=== PATIENT | male | born 1940 | race Caucasian/White ===

== ENCOUNTER → 2018-05-28 | Outpatient (CLI) | payer BC ==
[2018-01-05 09:18] VITALS: BP 110/70
[~2018-05-28] MED LIST: ASPI-630 PO; ATEN5POW MC; CHOL10002 PO; CYCL10TA2 PO; FLUT50DI IH; ISOS30TA19 PO; LOSA-73 PO; MULT-234 PO; NIAC750T4 PO; PRAV10TA2 PO; RANI150C PO; RIVA15TA PO; TAMS0.4C2 PO
--- NOTE | 2018-05-28 13:52 | KCIC ---
EXAM: Left hip and pelvis, 3 views. HISTORY: Pain. COMPARISON: None. FINDINGS: A frontal view the pelvis and frontal and frog-leg views of the left hip are obtained. There is no fracture, dislocation or subluxation. There is mild left greater than right hip osteoarthritis. There are corticated ossicles adjacent to the left greater than right acetabulum, likely due to chronic fragmented osteophytes. There is mild lumbar sclerosis and multilevel degenerative change throughout the lumbar spine. There is sacralization of the left L5 transverse process resulting in articulation with the underlying sacrum, a normal variant. IMPRESSION: 1. No acute osseous finding. 2. Mild left greater than right hip osteoarthritis. 3. Degenerative change throughout the lumbar spine. Electronically signed by: Lorraine Cervantes MD (05/28/2018 1:47 PM) [facility]
== END | disposition home or self-care (01) ==
LOC: KCIC 11:49
PROVIDERS: ATTEND Family Medicine
DX: M16.0 Bilateral primary osteoarthritis of hip (principal); M47.896 Other spondylosis, lumbar region; M43.27 Fusion of spine, lumbosacral region
CPT/HCPCS: 73502

== ENCOUNTER → 2018-06-07 | Outpatient (CLI) | payer BC ==
[2018-01-05 09:18] VITALS: BP 110/70
[~2018-06-07] MED LIST changes: +REGADENOSON 0.4 MG/5 ML DISP.SYRIN. IV ONE
--- NOTE | 2018-06-07 09:23 | CARD ---
MR#: [id number] Date of Study: 06/07/2018 Ordering Physician: DANGELO CARO, Referring Physician: DANGELO CARO, Tech: Nadya Naylor APPROVED REPORT EXAM: Two-dimensional and M-mode echocardiogram with Doppler and color Doppler. Other Information Quality : AverageHR: 60bpm INDICATION CAD RISK FACTORS Hypertension Hyperlipidemia 2D DIMENSIONS RVDd4.2 (2.9-3.5cm)Left Atrium(2D)4.3 (1.6-4.0cm) IVSd1.4 (0.7-1.1cm)Aortic Root(2D)3.8 (2.0-3.7cm) LVDd4.5 (3.9-5.9cm)LVOT Diameter2.4 (1.8-2.4cm) PWd1.4 (0.7-1.1cm)LVDs3.3 (2.5-4.0cm) FS (%) 27.6 %SV50.5 ml LVEF(%)53.7 (>50%) Aortic Valve AoV Peak Deonte.101.7cm/sAoV VTI23.9cm AO Peak GR.4.1mmHgLVOT Peak Deonte.89.6cm/s AO Mean GR.2mmHgAVA (VMAX)3.93cm2 Mitral Valve MV E Tfoafihf20.5cm/sMV DECEL TQUD055vo MV A Ylictmac81.5cm/sE/A Ratio0.7 Pulmonary Valve PV Peak Pdqhetxe097.7cm/s Tricuspid Valve TR P. Jglghydx082bj/sRAP MJRNQLFM0xpAv TR Peak Gr.55uyCjCGCB35wyDf Pulmonary Vein S1 Dimzukfc16.6cm/sD2 Relfbofk35.8cm/s PVa fyzufvqi407rovq LEFT VENTRICLE The left ventricle is normal size. There is moderate concentric left ventricular hypertrophy. The lef t ventricular systolic function is normal. The Ejection Fraction is 60-65%. There is normal LV segmen jackie wall motion. Transmitral Doppler flow pattern is Grade I-abnormal relaxation pattern. RIGHT VENTRICLE The right ventricle is normal size. There is normal right ventricular wall thickness. The right ventr icular systolic function is normal. ATRIA The left atrium size is normal. The right atrium size is normal. The atrial septum is aneurysmal. AORTIC VALVE The aortic valve is calcified but opens well. Doppler and Color Flow revealed no significant aortic r egurgitation. There is no significant aortic valvular stenosis. MITRAL VALVE Mitral annular calcification is borderline. There is possible prolapse of the posterior mitral leafle t. There is no mitral valve stenosis. Doppler and Color Flow revealed no mitral valve regurgitation n oted. TRICUSPID VALVE The tricuspid valve is normal in structure and function. Doppler and Color Flow revealed trace tricus pid valve regurgitation. There is no tricuspid valve stenosis. PULMONIC VALVE The pulmonary valve is normal in structure and function. Doppler and Color Flow revealed trace to mil d pulmonic valvular regurgitation. GREAT VESSELS The aortic root is normal in size. The IVC was not visualized. PERICARDIAL EFFUSION There is no evidence of significant pericardial effusion. Critical Notification Critical Value: No <Conclusion> The left ventricular systolic function is normal. The Ejection Fraction is 60-65%. There is normal LV segmental wall motion. Transmitral Doppler flow pattern is Grade I-abnormal relaxation pattern. Trace tricuspid valve regurgitation. There is no evidence of significant pericardial effusion. Signed by : Dangelo Caro, Electronically Approved : 06/07/2018 09:21:23
--- NOTE | 2018-06-07 15:00 | RAD ---
MR#: [id number] Date of Study: 06/07/2018 Ordering Physician: DANGELO HANNA Referring Physician: RADHA ORELLANA Tech: BRANDON Mustafa APPROVED REPORT Test Type: Pharmacological Stress Nurse/Tech: José Mejia RN Test Indications: CAD Cardiac History: CAD, HTN Medications: See Electronic Medical Record Medical History: See Electronic Medical Record Resting ECG: SR right BBB, T abnormality Resting Heart Rate: 54 bpm Resting Blood Pressure: 140/85mmHg Pretest Chest Pain: None Nurse/Tech Notes Lungs CTA, S1S2 Consent: The procedure was explained to the patient in lay terms. Informed consent was witnessed. Emre eout was entered into [employer]. History and Stress Test performed by José Mejia RN Pharm. Details Pharmacologic stress testing was performed using 0.4mg per 5ml of regadenoson given intravenously ove r 7-10 seconds. Stress Symptoms No chest pain or symptoms. POST EXERCISE Reason for Termination: Infusion complete Max HR: 102 bpm Max Blood Pressure: 140/75mmHg Blood Pressure response to exercise: Normal blood pressure response during stress. Heart Rate response to exercise: normal response Chest Pain: No. Arrhythmia: Yes. PVC, PAC ST Change: No. INTERPRETATION Stress EKG Conclusion: No evidence stress EKG changes. Imaging Protocol IMAGE PROTOCOL: Rest Tc-99m/stress Tc-99m 1 day Rest: Stress: Viability: Radiopharm.Tc99m NqwczrnnfHh62y Sestamibi Vxuy60dCv 32mCi Duration 15min. 10min. Img Date 06/07/2018 06/07/2018 Inj-Img Wbcc26fzx. 60min. Rest Admin Site:IV - Right AntecubitalAdministrator:BRANDON Mustafa Stress Admin Site: IV - Right AntecubitalAdministrator: Guille Jodran, (R)(N) STRESS DATA End Diast. Vol.90.0mlAv. Heart Rate77.0bpm End Syst. Vol.19.0mlCO Index BSA0.0L/min Myocardial Oxzs085.0gEject. Trdalepb52.0% Stress Rates Pk. Fill Rate3.00EDV/secLVtime Pk. Fill 226.61msec Pk. Empty Rate4.42ESV/secLVtime Pk. Mbayz275.13msec /3 Pk. Fill1.31EDV/sec Stress Scores Regional WT1.00Summed WT9.00 Regional WM0.00Summed WM2.00 LV Perfusion There is a small sized, severe in intensity FIXED basal inferior wall defect suggestive of prior infa rct without any significant ischemia. Wall Motion Normal wall motion and EF. LV Perf. Quant 17 Seg. SSS5.00 17 Seg. SRS3.00 17 Seg. SDS2.00 Stress Defect Extent (% LAD)0.00Rest Defect Extent (% LAD)0.00Rev. Defect Extent (% LAD)0.00 Stress Defect Extent (% LCX) 20.00Rest Defect Extent (% LCX)0.00Rev. Defect Extent (% LCX)2.50 Stress Defect Extent (% RCA)4.40Rest Defect Extent (% RCA)10.00Rev. Defect Extent (% RCA)0.00 Stress Defect Extent (% HEAVENLY)5.00Rest Defect Extent (% HEAVENLY)2.00Rev. Defect Extent (% HEAVENLY)0.40 Other Information Risk Assessment: Low Risk Conclusion 1. 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 No stress induced EKG changes. 2. FIXED basal inferior wall defect. 3. Normal LV function. EF 55% 4. Low risk study. Signed by : Santiago Reyes, Electronically Approved : 06/07/2018 14:58:08
== END | disposition home or self-care (01) ==
LOC: ECHO 07:47
PROVIDERS: ATTEND Internal Medicine Cardiovascular Disease
DX: I11.9 Hypertensive heart disease without heart failure (principal); I35.1 Nonrheumatic aortic (valve) insufficiency; I31.3 Pericardial effusion (noninflammatory); E78.5 Hyperlipidemia, unspecified; I25.10 Atherosclerotic heart disease of native coronary artery without angina pectoris; I45.10 Unspecified right bundle-branch block; Z88.2 Allergy status to sulfonamides; Z88.8 Allergy status to other drugs, medicaments and biological substances
CPT/HCPCS: 78452; 93017; 93306; 96374; A9500; J2785

== ENCOUNTER 2019-04-04 14:50 | Emergency (ER) | payer BC ==
[~2019-04-04] VITALS: Ht 177.8 cm; Wt 86.2 kg
[~2019-04-04 14:50] MED LIST changes: -REGADENOSON 0.4 MG/5 ML DISP.SYRIN. IV ONE
--- NOTE | 2019-04-04 15:46 | PHYS DOC ---
Past Medical History Past Medical History: CAD, High Cholesterol, Hypertension Past Surgical History: Tonsillectomy, Other Additional Past Surgical Histo: cardiac stent, tendon repair L arm Alcohol Use: None Drug Use: None Adult General Chief Complaint Chief Complaint: LOWEREXTREMITY INJURY HPI HPI Patient is a 78 year old male who presents with was lifting sheet rock today was down in a squatting position as he was lifting. Patient states he then felt a very sharp pain in the back of his right hamstring and a cramping feeling. Patient states that he just sitting he has no pain but with movement of the leg it a 10 out of 10. Patient states that the sharp pain will come and go and last for seconds. Patient states that it's hard with standing and sitting. Review of Systems Review of Systems Musculoskeletal: Right back of leg pain. Denies back pain or joint pain [] All other systems were reviewed and found to be within normal limits, except as documented in this note. Allergies Allergies Allergies Coded Allergies Type Severity Reaction Last Updated Verified Sulfa (Sulfonamide Antibiotics) Allergy Intermediate 01/05/18 Yes bacitracin Allergy Intermediate 01/05/18 Yes lisinopril Allergy Intermediate 01/05/18 Yes neomycin Allergy Intermediate 01/05/18 Yes polymyxin B Allergy Intermediate 01/05/18 Yes Physical Exam Physical Exam Constitutional: Well developed, well nourished, no acute distress, non-toxic appearance. [] HENT: Normocephalic, atraumatic, bilateral external ears normal, oropharynx moist, no oral exudates, nose normal. [] Eyes: PERRLA, EOMI, conjunctiva normal, no discharge. [] Neck: Normal range of motion, no tenderness, supple, no stridor. [] Cardiovascular:Heart rate regular rhythm, no murmur [] Lungs & Thorax: Bilateral breath sounds clear to auscultation [] Abdomen: Bowel sounds normal, soft, no tenderness, no masses, no pulsatile masses. [] Skin: Warm, dry, no erythema, no rash. [] Back: No tenderness, no CVA tenderness. [] Extremities: No tenderness, no cyanosis, no clubbing, Pain behind leg with knee extension but other vernon ROM intact, no edema. [] Neurologic: Alert and oriented X 3, normal motor function, normal sensory function, no focal deficits noted. [] Psychologic: Affect normal, judgement normal, mood normal. [] Current Patient Data Vital Signs Vital Signs Date Time Temp Pulse Resp B/P (MAP) Pulse Ox O2 Delivery O2 Flow Rate FiO2 04/04/19 15:05 98.3 63 18 160/91 (114) 96 Room Air 98.3 EKG EKG [] Radiology/Procedures Radiology/Procedures [] Impressions: [facility] [address] [place] [address] IMAGING REPORT Signed PATIENT: MARY BETH KIRK ACCOUNT: [id number] : 1940 LOCATION: ER AGE: 78 SEX: M EXAM STATUS: REG ER ORD. PHYSICIAN: CRISPIN MARSHALL APRN REASON: upper leg pain with movement PROCEDURE: KNEE RIGHT 4V EXAM: Right femur, 3 views; right knee, 4 views; pelvis and right hip, 3 views. HISTORY: Pain with movement. COMPARISON: None. FINDINGS: Right hip and pelvis and right femur: A frontal view the pelvis and frontal and frog-leg views of the right hip and 2 views of the right femur are obtained. There is no fracture, dislocation or subluxation. There is moderate marginal left acetabular spurring with associated chronic fragmented osteophytes. There is slight decreased right femoral head-neck offset, suggesting a component of chronic impingement. There is a transitional lumbosacral segment, a normal variant. There is lumbar scoliosis and degenerative change of the visualized lumbar levels. There is atherosclerosis of a tortuous or dilated abdominal aorta, not fully assessed on this exam. Right knee: 3 views of the right knee are obtained. There is mild tricuspid bilateral spurring. There is enthesopathy along the patella and anterior tibial tubercle. No joint effusion is seen. No fracture is seen. IMPRESSION: 1. Mild tricompartmental osteoarthritis of the right knee. 2. Moderate left hip osteoporosis arthritis and findings suggesting a component of chronic right hip impingement. Electronically signed by: Lorraine Razo MD (04/04/2019 4:01 PM) [facility] DICTATED and SIGNED BY: LORRAINE RAZO MD DATE: 04/04/19 2399 Course & Med Decision Making Course & Med Decision Making Denies numbness and tingling. Patient has full range of motion in the leg. Patient has no joint laxity. Patient can extend the leg out at the knee but this does cause him some pain to the back of his leg. There is no tenderness with palpation, no masses felt, no lumps felt. Skin is pink warm and dry. No swelling to the leg but it is noted that bilaterally he has 1+ swelling. No bruising or indention in hamstring. Denies feeling a popping feeling. Popiteal pulse present. No deformity or swelling to any joints. Denies any hip or pelvis pain and no tenderness. [] IMPRESSION: 1. Mild tricompartmental osteoarthritis of the right knee. 2. Moderate left hip osteoporosis arthritis and findings suggesting a component of chronic right hip impingement. Dragon Disclaimer Dragon Disclaimer This electronic medical record was generated, in whole or in part, using a voice recognition dictation system. Departure Departure Impression: Primary Impression: Hamstring muscle strain Disposition: HOME, SELF-CARE Condition: STABLE Referrals: OZIEL CHOI MD (PCP) Patient Instructions: Hamstring Strain, Hamstring Strain with Rehab-SportsMed Additional Instructions: Follow up with your primary care provider. No heavy lifting. Use ice or a heating pad. Take medications to help with pain. Scripts Orphenadrine Citrate (ORPHENADRINE CITRATE) 100 Mg Tablet.er 1 TAB PO BID, #20 TAB 1 Refill Prov: CRISPIN MARSHALL APRN 04/04/19 Hydrocodone/Apap 5-325 (NORCO 5-325 TABLET) 1 Each Tablet 1 TAB PO PRN Q6HRS PRN for PAIN, #10 TAB 0 Refills Prov: CRISPIN MARSHALL APRN 04/04/19 Problem Qualifiers Primary Impression: Hamstring muscle strain Encounter type: initial encounter Laterality: right Qualified Codes: S76.311A - Strain of muscle, fascia and tendon of the posterior muscle group at thigh level, right thigh, initial encounter CRISPIN MARSHALL APRN Apr 04, 2019 15:46
--- NOTE | 2019-04-04 16:04 | RAD ---
EXAM: Right femur, 3 views; right knee, 4 views; pelvis and right hip, 3 views. HISTORY: Pain with movement. COMPARISON: None. FINDINGS: Right hip and pelvis and right femur: A frontal view the pelvis and frontal and frog-leg views of the right hip and 2 views of the right femur are obtained. There is no fracture, dislocation or subluxation. There is moderate marginal left acetabular spurring with associated chronic fragmented osteophytes. There is slight decreased right femoral head-neck offset, suggesting a component of chronic impingement. There is a transitional lumbosacral segment, a normal variant. There is lumbar scoliosis and degenerative change of the visualized lumbar levels. There is atherosclerosis of a tortuous or dilated abdominal aorta, not fully assessed on this exam. Right knee: 3 views of the right knee are obtained. There is mild tricuspid bilateral spurring. There is enthesopathy along the patella and anterior tibial tubercle. No joint effusion is seen. No fracture is seen. IMPRESSION: 1. Mild tricompartmental osteoarthritis of the right knee. 2. Moderate left hip osteoporosis arthritis and findings suggesting a component of chronic right hip impingement. Electronically signed by: Lorraine Cervantes MD (04/04/2019 4:01 PM) [facility]
[2019-04-04 16:12] VITALS: BP 178/97
[2019-04-04] MEDS ORDERED: HYDR-3164 PO (16:21)
[2019-04-04] MEDS ORDERED: ORPH100T PO (16:21)
== END 2019-04-04 17:03 | disposition home or self-care (01) ==
LOC: ER 14:50
DX: S76.311A Strain of muscle, fascia and tendon of the posterior muscle group at thigh level, right thigh, initial encounter (principal); M79.604 Pain in right leg; E78.00 Pure hypercholesterolemia, unspecified; I10 Essential (primary) hypertension; I25.10 Atherosclerotic heart disease of native coronary artery without angina pectoris; Z95.5 Presence of coronary angioplasty implant and graft; Z88.1 Allergy status to other antibiotic agents; Z88.2 Allergy status to sulfonamides; Z88.8 Allergy status to other drugs, medicaments and biological substances; X50.0XXA Overexertion from strenuous movement or load, initial encounter; Y93.89 Activity, other specified; Y92.89 Other specified places as the place of occurrence of the external cause; Y99.8 Other external cause status
CPT/HCPCS: 73502; 73552; 73564; 99284

== ENCOUNTER → 2019-12-11 | Outpatient (CLI) | payer BC ==
[~2019-12-11] MED LIST changes: +HYDR-3164 PO; +ORPH100T PO
--- NOTE | 2019-12-11 11:21 | CARD ---
MR#: [id number] Date of Study: 12/11/2019 Ordering Physician: DANGELO HANNA, Referring Physician: DANGELO HANNA, Tech: Nadya Dooleyvickie APPROVED REPORT EXAM: Two-dimensional and M-mode echocardiogram with Doppler and color Doppler. Other Information Quality : AverageHR: 58bpm INDICATION Cardiac Disease: CAD RISK FACTORS Hypertension Hyperlipidemia 2D DIMENSIONS RVDd4.1 (2.9-3.5cm)Left Atrium(2D)4.1 (1.6-4.0cm) IVSd1.3 (0.7-1.1cm)Aortic Root(2D)3.3 (2.0-3.7cm) LVDd5.4 (3.9-5.9cm)LVOT Diameter2.3 (1.8-2.4cm) PWd1.1 (0.7-1.1cm)LVDs3.1 (2.5-4.0cm) FS (%) 42.1 %SV101.8 ml LVEF(%)72.6 (>50%) Aortic Valve AoV Peak Deonte.101.4cm/sAoV VTI20.4cm AO Peak GR.4.1mmHgLVOT Peak Deonte.80.9cm/s LVOT VTI 17.80cmAO Mean GR.2mmHg HARJEET (VMAX)2.50zf1NDR (VTI)3.57cm2 AI P 1/2 Qlsu5572ue Mitral Valve MV E Umvnctxv90.8cm/sMV DECEL SAMB271if MV A Ucnglpso68.6cm/sMV E Mean Gr.1mmHg MV LNT01xcJ/A Ratio0.7 MVA (PHT)2.56cm2 TDI E/Lateral E'8.1E/Medial E'10.3 Pulmonary Valve PV Peak Oyzmadce83.9cm/sPV Peak Grad.3mmHg Tricuspid Valve TR P. Xawnnyth980da/sRAP TKPSHCIK2qmAu TR Peak Gr.25utJwYPXS54fsOq Pulmonary Vein S1 Gmukuvzh08.1cm/sD2 Sodinmmh32.5cm/s PVa jjohsuhe841vrou LEFT VENTRICLE The left ventricle is normal size. There is borderline to mild concentric left ventricular hypertroph y. The left ventricular systolic function is normal and the ejection fraction is within normal range. EF 55% There is normal LV segmental wall motion. Transmitral Doppler flow pattern is Grade I-abnorma l relaxation pattern. RIGHT VENTRICLE The right ventricle is normal size. There is normal right ventricular wall thickness. The right ventr icular systolic function is normal. ATRIA The left atrium size is normal. The right atrium size is normal. The interatrial septum is intact wit h no evidence for an atrial septal defect or patent foramen ovale as noted on 2-D or Doppler imaging. AORTIC VALVE The aortic valve is thickened but opens well. Doppler and Color Flow revealed trace aortic regurgitat ion. There is no significant aortic valvular stenosis. Calculated aortic valve area is 3.74 cm2 with maximum pressure gradient of 7 mmHg and mean pressure gradient of 3 mmHg. MITRAL VALVE The mitral valve is normal in structure and function. There is no evidence of mitral valve prolapse. There is no mitral valve stenosis. Doppler and Color-flow revealed trace mitral regurgitation. TRICUSPID VALVE The tricuspid valve is normal in structure and function. Doppler and Color Flow revealed trace tricus pid regurgitation with an estimated PAP of 19 mmHg. There is no tricuspid valve stenosis. PULMONIC VALVE The pulmonic valve is not well visualized. Doppler and Color Flow revealed trace to mild pulmonic raheem vular regurgitation. There is no pulmonic valvular stenosis. GREAT VESSELS The aortic root is normal in size. The ascending aorta is Mildly dilated at 3.5 cm The IVC was not vi sualized. PERICARDIAL EFFUSION There is no evidence of significant pericardial effusion. Critical Notification Critical Value: No <Conclusion> The left ventricular systolic function is normal and the ejection fraction is within normal range. EF 55% There is normal LV segmental wall motion. The ascending aorta is Mildly dilated at 3.5 cm Signed by : Santiago Reyes, Electronically Approved : 12/11/2019 11:20:30
== END | disposition home or self-care (01) ==
LOC: ECHO 07:55
PROVIDERS: ATTEND Internal Medicine Cardiovascular Disease
DX: I37.1 Nonrheumatic pulmonary valve insufficiency (principal); I25.10 Atherosclerotic heart disease of native coronary artery without angina pectoris
CPT/HCPCS: 93306

== ENCOUNTER → 2020-06-15 | Outpatient (CLI) | payer BC ==
[~2020-06-15] MED LIST changes: +REGADENOSON 0.4 MG/5 ML DISP.SYRIN. IV ONE
--- NOTE | 2020-06-16 16:03 | RAD ---
MR#: [id number] Date of Study: 06/15/2020 Ordering Physician: DANGELO HANNA, Referring Physician: RADHA ORELLANA Tech: RT Natacha (R) (N) APPROVED REPORT Test Type: Pharmacological Stress Nurse/Tech: José Mejia RN Test Indications: CAD Cardiac History: Stent 03/2000, HTN Medications: See Electronic Medical Record Medical History: See Electronic Medical Record Resting ECG: SR with nonspecific ST depression Resting Heart Rate: 57 bpm Resting Blood Pressure: 156/77mmHg Pretest Chest Pain: None Nurse/Tech Notes lungsCTA, S1S2 Consent: The procedure was explained to the patient in lay terms. Informed consent was witnessed. Emre eout was entered into [employer]. History and Stress Test performed by RT Emilie (R) (N) Pharm. Details Pharmacologic stress testing was performed using 0.4mg per 5ml of regadenoson given intravenously ove r 7-10 seconds. Stress Symptoms No chest pain or symptoms. POST EXERCISE Reason for Termination: Infusion complete Max HR: 94 bpm Max Blood Pressure: 148/85mmHg Blood Pressure response to exercise: Normal blood pressure response during stress. Heart Rate response to exercise: Normal response Chest Pain: Yes. Arrhythmia: Yes. PVC ST Change: No. INTERPRETATION Stress EKG Conclusion: The resting EKG shows a sinus rhythm with mild nonspecific ST-T wave changes. The stress EKG shows no significant changes from baseline. No EKG evidence of stress-induced ischemia. Imaging Protocol IMAGE PROTOCOL: Rest Tc-99m/stress Tc-99m 1 day Rest: Stress: Viability: Radiopharm.Tc99m OuxbyexuzNe31c Sestamibi Dose10.8mCi 30.6mCi Duration 15min. 15min. Img Date 06/15/2020 06/15/2020 Inj-Img Hzmy78zaw. 60min. STRESS DATA End Diast. Vol.71.0mlAv. Heart Rate86.0bpm End Syst. Vol.13.0mlCO Index BSA0.0L/min Myocardial Ospd404.0gEject. Lobdsilx71.0% Stress Rates Pk. Fill Rate3.24EDV/secLVtime Pk. Fill 188.61msec Pk. Empty Rate6.08ESV/secLVtime Pk. Bxjkc454.99msec 1/3 Pk. Fill0.90EDV/sec Stress Scores Regional WT0.00Summed WT6.00 Regional WM0.00Summed WM1.00 LV Perfusion The stress scans showed no significant defects. The rest scans showed no significant defects. Nuclear imaging shows no reversible ischemia or infarct. Wall Motion Left ventricular systolic function is normal with an ejection fraction of greater than 70%. LV Perf. Quant 17 Seg. SSS1.00 17 Seg. SRS4.00 17 Seg. SDS0.00 Stress Defect Extent (% LAD)0.00Rest Defect Extent (% LAD)0.00Rev. Defect Extent (% LAD)0.00 Stress Defect Extent (% LCX) 0.00Rest Defect Extent (% LCX)31.30Rev. Defect Extent (% LCX)0.00 Stress Defect Extent (% RCA)0.00Rest Defect Extent (% RCA)0.00Rev. Defect Extent (% RCA)0.00 Stress Defect Extent (% HEAVENLY)0.00Rest Defect Extent (% HEAVENLY)5.90Rev. Defect Extent (% HEAVENLY)0.00 Conclusion 1. Mildly abnormal baseline EKG but no EKG evidence of stress-induced ischemia. 2. Nuclear imaging shows no reversible ischemia or infarct. 3. Normal left ventricular systolic function with an ejection fraction of greater than 70%. 4. Low risk Lexiscan nuclear stress test. Signed by : Jayant Ramon MD Electronically Approved : 06/16/2020 16:02:53
== END ==
LOC: NM 08:18
PROVIDERS: ATTEND Internal Medicine Cardiovascular Disease
DX: R94.31 Abnormal electrocardiogram [ECG] [EKG] (principal); I25.10 Atherosclerotic heart disease of native coronary artery without angina pectoris
CPT/HCPCS: 78452; 93017; A9500; J2785

== ENCOUNTER → 2020-12-16 | Outpatient (CLI) | payer BC ==
[~2020-12-16] MED LIST changes: -REGADENOSON 0.4 MG/5 ML DISP.SYRIN. IV ONE
--- NOTE | 2020-12-16 12:51 | CARD ---
MR#: [id number] Date of Study: 12/16/2020 Ordering Physician: DANGELO HANNA, Referring Physician: DANGELO HANNA Tech: Mago Silva [facility] APPROVED REPORT EXAM: Two-dimensional and M-mode echocardiogram with Doppler and color Doppler. Other Information Quality : AverageHR: 59bpm Rhythm : NSR INDICATION Cardiac Disease: RISK FACTORS Hypertension 2D DIMENSIONS RVDd4.8 (2.9-3.5cm)Left Atrium(2D)4.0 (1.6-4.0cm) IVSd2.1 (0.7-1.1cm)Aortic Root(2D)4.1 (2.0-3.7cm) LVDd3.3 (3.9-5.9cm)LVOT Diameter2.4 (1.8-2.4cm) PWd1.7 (0.7-1.1cm)LVDs2.1 (2.5-4.0cm) FS (%) 36.5 %SV28.9 ml LVEF(%)67.6 (>50%) Aortic Valve AoV Peak Deonte.116.9cm/sAoV VTI29.6cm AO Peak GR.5.5mmHgLVOT Peak Deonte.85.6cm/s AO Mean GR.4mmHgAVA (VMAX)3.31cm2 Mitral Valve MV E Tdsselzz89.3cm/sMV DECEL JARM682vs MV A Klpesatv29.9cm/sE/A Ratio0.7 Pulmonary Valve PV Peak Chdybeuo15.6cm/s Tricuspid Valve TR P. Dxlybjoc906wl/sTR Peak Gr.14mmHg Pulmonary Vein S1 Xlsppkeb64.4cm/sD2 Hxgtbwbe26.2cm/s PVa xtjdivcy864mkde LEFT VENTRICLE The left ventricle is normal size. There is mild to moderate concentric left ventricular hypertrophy. The left ventricular systolic function is normal and the ejection fraction is within normal range. L V systolic function is 55 to 60%. There is normal LV segmental wall motion. Transmitral Doppler flow pattern is Grade I-abnormal relaxation pattern. RIGHT VENTRICLE The right ventricle is mildly dilated. The right ventricle is mildly hypertrophied. The right ventric ular systolic function is normal. ATRIA The left atrium size is normal. The right atrium size is normal. AORTIC VALVE The aortic valve is mildly thickened but opens well. Doppler and Color Flow revealed mild aortic regu rgitation. There is no significant aortic valvular stenosis. MITRAL VALVE The mitral valve is normal in structure and function. There is no evidence of mitral valve prolapse. There is no mitral valve stenosis. Doppler and Color Flow revealed trace mitral valve regurgitation. TRICUSPID VALVE The tricuspid valve is normal in structure and function. Doppler and Color Flow revealed trace tricus pid regurgitation. There is no tricuspid valve stenosis. PULMONIC VALVE The pulmonary valve is normal in structure and function. Doppler and Color Flow revealed mild pulmoni c valvular regurgitation. GREAT VESSELS The aortic root is mildly to moderately enlarged. The ascending aorta is mldly dilated. The IVC is no rmal in size and collapses >50% with inspiration. PERICARDIAL EFFUSION There is no evidence of significant pericardial effusion. Critical Notification Critical Value: No <Conclusion> The left ventricle is normal size. The left ventricular systolic function is normal and the ejection fraction is within normal range. LV systolic function is 55 to 60%. There is mild to moderate concentric left ventricular hypertrophy. Doppler and Color Flow revealed mild aortic regurgitation. There is no significant aortic valvular stenosis. Doppler and Color Flow revealed trace mitral valve regurgitation. Doppler and Color Flow revealed trace tricuspid regurgitation. The aortic root is mildly to moderately enlarged. Signed by : Jayant Ramon MD Electronically Approved : 12/16/2020 12:51:36
== END ==
LOC: ECHO 07:45
PROVIDERS: ATTEND Internal Medicine Cardiovascular Disease
DX: I08.8 Other rheumatic multiple valve diseases (principal); I25.10 Atherosclerotic heart disease of native coronary artery without angina pectoris
CPT/HCPCS: 93306

== ENCOUNTER 2021-01-25 12:41 | Emergency (ER) | payer BC ==
[~2021-01-25] VITALS: Ht 177.8 cm; Wt 180.0 kg
[2021-01-25 12:51] VITALS: BP 188/98
[2021-01-25] MEDS ORDERED: DIPH,PERTUSS(ACELL),TET VAC/PF 0.5 ML SYRINGE. VAX IM ONE (13:45)
[2021-01-25] MEDS ORDERED: LIDOCAINE 1% Multi-Dose 20 ML VIAL. INJ ONE (13:45)
--- NOTE | 2021-01-25 14:14 | PHYS DOC ---
Past Medical History Past Medical History: CAD, High Cholesterol, Hypertension Additional Past Medical Histor: FALLS, DAILY ASA ([employer] INS[employer] VERIFICATION REP) Past Surgical History: Tonsillectomy, Other Additional Past Surgical Histo: cardiac stent, tendon repair L arm ([employer] VERIFICATION REP) Smoking Status: Never Smoker Alcohol Use: None Drug Use: None ([employer] VERIFICATION REP) General Adult EDM: Chief Complaint: LACERATION/AVULSION HPI: HPI: Patient is a 80 year old male who presents with states he has been doing some work inside his house and he had the sticky paper plastic that goes down over the floor and then he had a big roll up against the wall when he is walking by and his foot hit it causing him to trip and fall. He states that his head hit the edge of the trash can that was sitting there. He does not remember when his last tetanus shot was. He denies LOC, dizziness, abdominal pain, chest pain, shortness of air, nausea, vomiting, vision change. He does have a headache where the laceration is on his forehead. He takes a baby aspirin a day. His other history is falls, CAD, hypertension, high cholesterol, heart stent, tonsillectomy, left arm tendon repair. Rates his pain a 5 out of 10. ([employer] VER[employer]ICATION REP) Review of Systems: Review of Systems: Constitutional: Denies fever or chills. [] Eyes: Denies change in visual acuity. [] HENT: Denies nasal congestion or sore throat. [] Respiratory: Denies cough or shortness of breath. [] Cardiovascular: Denies chest pain or edema. [] GI: Denies abdominal pain, nausea, vomiting, bloody stools or diarrhea. [] : Denies dysuria. [] Musculoskeletal: Denies back pain or joint pain. [] Integument: Denies rash. +forehead laceration[] Neurologic: + headache, denies focal weakness or sensory changes. [] Endocrine: Denies polyuria or polydipsia. [] Lymphatic: Denies swollen glands. [] Psychiatric: Denies depression or anxiety. [] ([employer] VERIFICATION REP) Heart Score: C/O Chest Pain: No ([employer] VERIFICATION REP) Current Medications: Current Medications Medications (Trade) Dose Ordered Sig/Todd Start Time Stop Time Status Last Admin Dose Admin Diphtheria/ Tetanus/Acell Pertussis (ADACEL TDap SYRINGE) 0.5 ml ONCE ONCE 01/25/21 13:45 01/25/21 13:46 DC Lidocaine HCl (Lidocaine 1% 20ml Vial) 20 ml 1X ONCE 01/25/21 13:45 01/25/21 13:46 DC (CRISPIN MARSHALL APRN) Allergies: Allergies: Allergies Coded Allergies Type Severity Reaction Last Updated Verified Sulfa (Sulfonamide Antibiotics) Allergy Intermediate 01/05/18 Yes bacitracin Allergy Intermediate 01/05/18 Yes lisinopril Allergy Intermediate 01/05/18 Yes neomycin Allergy Intermediate 01/05/18 Yes polymyxin B Allergy Intermediate 01/05/18 Yes (CRISPIN MARSHALL APRN) Physical Exam: PE: Constitutional: Well developed, well nourished, no acute distress, non-toxic appearance. [] HENT: Normocephalic, atraumatic, bilateral external ears normal, oropharynx moist, no oral exudates, nose normal. [] Eyes: PERRLA, EOMI, conjunctiva normal, no discharge. [] Neck: Normal range of motion, no tenderness, supple, no stridor. [] Cardiovascular:Heart rate regular rhythm, no murmur [] Lungs & Thorax: Bilateral breath sounds clear to auscultation [] Abdomen: Bowel sounds normal, soft, no tenderness, no masses, no pulsatile masses. [] Skin: Warm, dry, no erythema, no rash. Laceration to forehead[] Back: No tenderness, no CVA tenderness. [] Extremities: No tenderness, no cyanosis, no clubbing, ROM intact, no edema. [] Neurologic: Alert and oriented X 3, normal motor function, normal sensory function, no focal deficits noted. [] Psychologic: Affect normal, judgement normal, mood normal. [] (CRISPIN MARSHALL APRN) Current Patient Data: Vital Signs: Vital Signs Date Time Temp Pulse Resp B/P (MAP) Pulse Ox O2 Delivery O2 Flow Rate FiO2 01/25/21 12:51 98.2 63 16 188/98 (128) 98 Room Air 98.2 (CRISPIN MARSHALL APRN) EKG: EKG: [] (CRISPIN MARSHALL APRN) Radiology/Procedures: Radiology/Procedures: [] Impression: [facility] [address] [place] [address] IMAGING REPORT Signed PATIENT: MARY BETH KIRK ACCOUNT: [id number] : 1940 LOCATION: ER AGE: 80 SEX: M EXAM STATUS: REG ER ORD. PHYSICIAN: CRISPIN MARSHALL APRN REASON: fall, forehead lacteration PROCEDURE: CT MAXILLOFACIAL WO CONTRAST CT HEAD AND C-SPINE WO, CT MAXILLOFACIAL WITHOUT CONTRAST Date: 01/25/2021 1:42 PM Clinical Indication: Pain, fall, forehead laceration Comparison: 04/01/2012. Technique: Axial computed tomographic images were obtained of the head, maxillofacial structures, and cervical spine without contrast. Multiplanar reconstructions were performed. One or more of the following dose reduction techniques were utilized: Automated exposure control (AEC), Adjustment of mA and/or kV according to patient size, Use of iterative reconstruction technique such as ASiR, CT scan done according to ALARA and image gently/image wisely CT Head Findings: Mild generalized cerebral and cerebellar volume loss. Mild nonspecific periventricular hypoattenuation, most commonly seen with chronic small vessel ischemic disease. No intra- or extra-axial mass or fluid collection. No acute hemorrhage. The ventricles are normal in size, shape, and morphology. The porras-white matter junction is normal. The basilar cisterns are patent. The mastoid air cells are clear. No aggressive osseous lesion or fracture. CT Face Findings: There is no acute facial bone fracture. Unchanged chronic nasal tip irregularity and buckling of the nasal septum. The paranasal sinuses are clear. The orbits are normal. The globes are intact. CT Cervical Spine Findings: Straightening of the cervical lordosis. No acute fracture. No aggressive lytic or blastic osseous lesions. Moderate multilevel degenerative disc space height loss. Multilevel spinal canal stenosis secondary to disc protrusions and marginal osteophytes, moderate to severe at C6-7. Multilevel moderate to severe neuroforaminal narrowing secondary to uncovertebral arthrosis. Multilevel moderate to severe facet arthrosis. The thyroid gland is normal. No cervical lymphadenopathy. Bilateral carotid atherosclerosis. The visualized aerodigestive tract is normal. The visualized portions of the lungs are clear. Impression: 1. No acute intracranial process. 2. No acute facial bone fracture. 3. No acute osseous abnormality of the cervical spine Electronically signed by: Kristy Mcginnis MD (01/25/2021 2:48 PM) [id number] DICTATED and SIGNED BY: KRISTY MCGINNIS MD DATE: 01/25/21 [id number] (CRISPIN MARSHALL APRN) Course & Med Decision Making: Course & Med Decision Making Pertinent Labs and Imaging studies reviewed. (See chart for details) See HPI. Alert and oriented x4. Ambulatory steady gait. Speaks in full clear sentences. Full range of motion of his neck. No focal bony spinal tenderness. Skin pink warm and dry. No extremity deformity, swelling. No joint laxity or deformity. PERRLA. Laceration repair Location: Forehead diagonal 5 inches long Local anesthesia: 2% lidocaine with epi Interrupted sutures/Internal sutures: 13 using 4-0 Nerve/ligament/muscle damage: None Cleaning and irrigation: Chlorhexidine and saline The appropriate timeout was taken. The area was prepped and draped in the usual sterile fashion. The wound was copiously irrigated with normal saline and chlorhexidine. Patient tolerated well without complication. Dressing was applied to the area follow-up education is given to observe for signs and symptoms of infection, bleeding and to follow-up promptly if these occur. Patient can return in 48 hours for a wound recheck. Sutures to be removed in 7 to 10 days. [] (CRISPIN MARSHALL APRN) Dragon Disclaimer: Dragon Disclaimer: This electronic medical record was generated, in whole or in part, using a voice recognition dictation system. (CRISPIN MARSHALL APRN) Departure Departure Impression: Primary Impression: Laceration Additional Impression: Fall Qualified Codes: W19.XXXA - Unspecified fall, initial encounter Disposition: HOME / SELF CARE / HOMELESS Condition: STABLE Referrals: OZIEL CHOI MD (PCP) Patient Instructions: Facial Laceration, Head Injury, Adult Additional Instructions: Follow-up your primary care if needed. Sutures need to be removed in 10 days. Take Tylenol for any pain you may have. If you begin vomiting, have a severe headache or severe dizziness return emergency room. Attending Signature Attending Signature I have reviewed the PA/COMMUNITY DEVELOPMENT AIDE's note and plan of care. I was available for consultation as needed during the patient's visit in the emergency department. I agree with the clinical impression, plan, and disposition. (NICO CASTILLO DO) CRISPIN MARSHALL APRN Jan 25, 2021 14:14 NICO CASTILLO DO Jan 26, 2021 14:01
--- NOTE | 2021-01-25 14:50 | RAD ---
CT HEAD AND C-SPINE WO, CT MAXILLOFACIAL WITHOUT CONTRAST Date: 01/25/2021 1:42 PM Clinical Indication: Pain, fall, forehead laceration Comparison: 04/01/2012. Technique: Axial computed tomographic images were obtained of the head, maxillofacial structures, an d cervical spine without contrast. Multiplanar reconstructions were performed. One or more of the fol lowing dose reduction techniques were utilized: Automated exposure control (AEC), Adjustment of mA an d/or kV according to patient size, Use of iterative reconstruction technique such as ASiR, CT scan do ne according to ALARA and image gently/image wisely CT Head Findings: Mild generalized cerebral and cerebellar volume loss. Mild nonspecific periventricular hypoattenuatio n, most commonly seen with chronic small vessel ischemic disease. No intra- or extra-axial mass or fluid collection. No acute hemorrhage. The ventricles are normal in size, shape, and morphology. The porras-white matter junction is normal. The basilar cisterns are paten t. The mastoid air cells are clear. No aggressive osseous lesion or fracture. CT Face Findings: There is no acute facial bone fracture. Unchanged chronic nasal tip irregularity and buckling of the nasal septum. The paranasal sinuses are clear. The orbits are normal. The globes are intact. CT Cervical Spine Findings: Straightening of the cervical lordosis. No acute fracture. No aggressive lytic or blastic osseous les ions. Moderate multilevel degenerative disc space height loss. Multilevel spinal canal stenosis secondary t o disc protrusions and marginal osteophytes, moderate to severe at C6-7. Multilevel moderate to sever e neuroforaminal narrowing secondary to uncovertebral arthrosis. Multilevel moderate to severe facet arthrosis. The thyroid gland is normal. No cervical lymphadenopathy. Bilateral carotid atherosclerosis. The visu alized aerodigestive tract is normal. The visualized portions of the lungs are clear. Impression: 1. No acute intracranial process. 2. No acute facial bone fracture. 3. No acute osseous abnormality of the cervical spine Electronically signed by: Silvestre Mcginnis MD (01/25/2021 2:48 PM) [id number]
[2021-01-25] MEDS ORDERED: LIDOCAINE 2%/EPI 1:100,000 20 ML VIAL. ONE (15:04)
== END 2021-01-25 17:17 | disposition home or self-care (01) ==
LOC: ER 12:41
DX: S01.81XA Laceration without foreign body of other part of head, initial encounter (principal); R51.9 Headache, unspecified; M54.2 Cervicalgia; E78.00 Pure hypercholesterolemia, unspecified; I10 Essential (primary) hypertension; I65.23 Occlusion and stenosis of bilateral carotid arteries; I25.10 Atherosclerotic heart disease of native coronary artery without angina pectoris; Z95.5 Presence of coronary angioplasty implant and graft; Z88.1 Allergy status to other antibiotic agents; Z88.2 Allergy status to sulfonamides; Z88.5 Allergy status to narcotic agent; Z88.6 Allergy status to analgesic agent; W01.0XXA Fall on same level from slipping, tripping and stumbling without subsequent striking against object, initial encounter; Y93.01 Activity, walking, marching and hiking; Y92.89 Other specified places as the place of occurrence of the external cause; Y99.8 Other external cause status
CPT/HCPCS: 12015; 70450; 70486; 72125; 90471; 90715; 99285; J3490